=== PATIENT | female | born 1935 ===

== ENCOUNTER 2019-05-21 05:36 | Day surgery (SDC) | payer OTHER ==
[~2019-05-21 05:36] MED LIST: LOTREL 10-20 M1 EACH PO; SYNTHROID75 MCG PO
[2019-05-21] MEDS ORDERED: MACROBID 100 M100 MG PO (12:01)
[2019-05-21] MEDS ORDERED: ULTRACET PO (12:01)
== END 2019-05-21 15:40 | disposition home or self-care (01) ==
LOC: CIR.AMB 05:36
DX: N81.3 Complete uterovaginal prolapse (principal)